=== PATIENT | female | born 1945 | race African-American/Black ===

== ENCOUNTER → 2017-04-20 | Outpatient (POV) | payer MEDICARE, OTHER, SELFPAY | PROVIDERS: Visit Provider Podiatrist ==

== ENCOUNTER → 2017-05-04 | Outpatient (POV) | payer MEDICARE, OTHER, SELFPAY | PROVIDERS: Visit Provider Podiatrist ==

== ENCOUNTER → 2017-10-18 08:50 | Outpatient (CLI) | payer MEDICARE, OTHER, SELFPAY ==
--- NOTE | 2017-10-18 09:02 | US_ITS ---
US abdomen limited: HISTORY: Right upper quadrant pain and discomfort ITS.REASON: ABDOMINAL PAIN ORDERING PHYSICIAN: Minna Nam MD PATIENT AGE: 72 years FINDINGS: PANCREAS: Unremarkable. No obvious mass or abnormal fluid collection. No ductal dilatation LIVER: Slight increased echogenicity of the liver consistent with hepatic steatosis. No focal liver lesions evident RIGHT KIDNEY: Unremarkable. Normal size and echogenicity. No hydronephrosis GALLBLADDER: There is mild prominence of the intrahepatic biliary radicles. Common bile duct is normal at 6 mm. Gallbladder appears contracted with mildly thickened wall measuring up to 4 mm. No obvious stones. No pericholecystic fluid. IMPRESSION: 1. Contracted appearing gallbladder with mildly thickened wall. No gallstones. 2. Mild prominence of the intrahepatic biliary radicles.
== END ==
PROVIDERS: PCP Family Medicine; Visit Provider Family Medicine
DX: R10.11 Right upper quadrant pain (principal)
CPT/HCPCS: 76705

== ENCOUNTER → 2017-10-24 11:54 | Outpatient (CLI) | payer MEDICARE, OTHER, SELFPAY ==
[2017-10-24 12:46] LABS: Blood Urea Nitrogen 11 mg/dL (7-18); Creatinine,Serum 1.02 mg/dL (0.55-1.02); Estimated Glomerular Filt Rate 53 ml/min (>60); GFR (African American) 64 ML/MIN (>60)
--- NOTE | 2017-10-24 12:53 | CT_ITS ---
CT abdomen wo/w con CLINICAL INDICATION: ITS.REASON: JAUNDICE, GENERALIZED ABD PAIN ORDERING PHYSICIAN: Minna Nam MD PATIENT AGE: 72 years TECHNIQUE: Axial images are performed without and with contrast. Axial images obtained with sagittal and coronal reformats. All CT scans at the facility use one or more dose reduction, viz: automated exposure control; ma/kV adjustment per patient size (including targeted exams where dose is matched to indication; i.e. head); or iterative reconstruction technique. PROCEDURE: Oral Contrast: Redicat IV Contrast: 75 mL of Isovue-[id number]. FINDINGS: The lung bases are clear. The pericardium is thickened measuring up to 11 mm consistent with pericardial effusion No focal liver lesion is evident. There is a dense calcification in the infra aspect of the right hepatic lobe. There is moderate intrahepatic biliary ductal dilatation. The gallbladder is hyperdense measuring 65 Hounsfield units. There is abnormal soft tissue density within the portal region of the liver. There is attenuation of the portal vein at this area. It is difficult to determine the definite measurement of the soft tissue density measuring at least 3 x 2 cm. This is causing some narrowing also of the hepatic arteries and their proximal branches. The biliary radicles are dilated proximal to this area. This is suspicious for a Klatskin's tumor/cholangiocarcinoma. MRI with MRCP recommended for further evaluation. Infiltrating mass may actually be larger than previously mentioned as it does appear to involve the hepatic artery proximally measuring approximately 3.7 x 3 x 2 cm. There is mild infiltration of the peripancreatic fat with minimal stranding of the anterior pararenal fascia on the left suggesting mild pancreatitis It is possible the mass may be extending from the pancreatic head as there is some increased density extending downward toward the pancreatic head medial to the duodenum. There is also ductal dilatation of the pancreas measuring up to 7 mm. The spleen and adrenal glands and kidneys have an unremarkable appearance. There is mild dilatation of the infrarenal abdominal aorta measuring up to 3 cm in transverse dimension. There is severe narrowing of the proximal aspect of the celiac artery of 90% or greater. The SMA is patent. No acute bony anomalies are evident. IMPRESSION: 1. 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 This is causing narrowing of the hepatic artery branches as well as severe narrowing of the main portal vein just before the bifurcation and the left portal vein. Is causing moderate intrahepatic biliary ductal dilatation. Cholangiocarcinoma is the main consideration. Other etiologies would include lymphoma of the portal area as well as a pancreatic carcinoma extending from the head of the pancreas extending superiorly. There is moderate ductal dilatation of the pancreas which may be caused by this lesion extending inferiorly. MRI of the abdomen without and with contrast and with MRCP recommended for further evaluation 2. Mild pancreatitis 3. Mild dilatation of the infrarenal abdominal aorta at 3 cm
== END ==
PROVIDERS: PCP Family Medicine; Visit Provider Family Medicine
DX: R10.84 Generalized abdominal pain (principal); R17 Unspecified jaundice
CPT/HCPCS: 36415; 74170; 82565; 84520; Q9967

== ENCOUNTER → 2017-10-26 14:30 | Outpatient (CLI) | payer MEDICARE, OTHER, SELFPAY ==
--- NOTE | 2017-10-26 14:32 | MR_ITS ---
MR abdomen wo/w con, MR 3-d myelogram/MRCP HISTORY: Right upper quadrant mass identified on recent CT abdomen with MRI suggested ITS.REASON: ABDOMINAL MASS, UNSPECIFIED ABNORMAL LOCATION ORDERING PHYSICIAN: Minna Nam MD PATIENT AGE: 72 years COMPARISON: 10/24/2017 TECHNIQUE: Standard multiplanar multiecho sequences are performed without and with gadolinium enhancement . MRCP images also generated and reviewed LIMITATIONS: There is a moderate degree of motion artifact on nearly every sequence obscures fine detail of the portal mass FINDINGS: There is an infiltrating mass once again noted in the portal region of the liver. The measurements are difficult to obtain due to the motion artifact. Please see the CT scan for more accurate measurements. This is causing moderate intrahepatic biliary ductal dilatation. The common bile duct is severely narrowed. There is also dilatation of the pancreatic duct. The lesion may extend into the pancreatic head or could be evolving from the pancreatic head. MRCP images demonstrate dilatation of the biliary radicles and pancreatic duct. There is long segment narrowing of the proximal and mid aspect of the common bile duct with occlusion of the distal aspect of the common bile duct as well as high-grade stenosis or occlusion of the pancreatic duct near the ampulla. No obvious common duct stone. No obvious liver parenchymal lesions. The kidneys and adrenal glands and spleen have an unremarkable appearance. Pericardial effusion is present measuring 17 mm in thickness.. There is mild dilatation of the infrarenal abdominal aorta at 3 cm. IMPRESSION: Infiltrating lesion once again noted at the portal area extending to the level the pancreatic head. This could either represent a cholangiocarcinoma with extension inferiorly or pancreatic head carcinoma extending superiorly. Lymphoma is also a consideration. There is intrahepatic ductal dilatation as well as pancreatic ductal dilatation with long segment narrowing of the mid aspect of the common bile duct and high grade narrowing or occlusion of the distal common bile duct and distal pancreatic duct at the ampulla. ERCP may be of further value if clinically desired
== END ==
PROVIDERS: PCP Family Medicine; Visit Provider Family Medicine
DX: R19.01 Right upper quadrant abdominal swelling, mass and lump (principal)
CPT/HCPCS: 74183; 76376; A9576